=== PATIENT | male | born 1980 | race Hispanic/Latino ===

== ENCOUNTER 2022-09-30 21:55 | Emergency (ER) | payer BC, SELFPAY ==
--- OUTSIDE RECORDS SUMMARY | 2022-09-30 21:57 | XMS REPORT | Continuity of Care Document ---
:1980 Author Organization [facility] Address [address] [place] [address] Care Team Providers Name Role Phone DEREK LEZAMA Attending Clinician Unavailable Only, Ang Db Test Attending Clinician Unavailable Yusuf SCHOOL LABORATORY TECHNICIANDerek Attending Clinician Doctor Unassigned, [place] Attending Clinician Unavailable Rosa Jesus RN Attending Clinician Unavailable NORBERTO MUNSON Attending Clinician Unavailable Payers Payer Name Policy Type Policy Number Effective Date Expiration Date [id number] 2017 00:00:00 OUT OF STATE Problems Condition Condition Condition Status Onset Resolution Last Treating Co mments Source Name Details Category Date Date Treatment Clinician Date Moderate Moderate Disease Active 2014-10 Unive rs persistent persistent 1-23 it y of asthma asthma 00:00: [address] Oral ulcer Oral ulcer Disease Active 2014-10 U nivers 1-18 ity of 00:00: [address] Allergies, Adverse Reactions, Alerts Allergy Allergy Status Severity Reaction(s) Onset Inactive Treating Comm ents Source Name Type Date Date Clinician IODINE DRUG Active Hives 2016-10 Univers INGREDI 2-12 ity of 00:00: [place] 00 [facility] Iodine Propensi Active Hives 2016-10 Univers ty to 2-12 ity of adverse 00:00: [place] reaction 00 Medical [facility] Social History Social Habit Start Date Stop Date Quantity Comments Source Exposure to Yes [facility] SARS-CoV-2 (event) Medica l Branch Alcohol intake 2017-10-11 2017-10-11 .71 /d [facility] 00:00:00 00:00:00 Medical Branch Tobacco use and 2016-01-14 2016-01-14 Never used [facility] exposure 00:00:00 00:00:00 Medical Branch Sex [birth year] [facility] 00:00:00 00:00:00 Medical Branch Smoking Status Start Date Stop Date Source Never smoker [facility] Medical Branch Medications Ordered Filled Start Stop Current Ordering Indication Dosage Frequency Signature Comments Components Source Medication Medication Date Date Medication? Clinician (SIG) Name Name famotidine 2016-10 Yes 20mg Take 1 Unive rs 20 mg 2-12 tablet by ity of tablet 00:00: mouth 2 [place] 00 (two) Medical times Branch daily. ondansetron 2016-10 Yes 4mg Take 1 Univ ers 4 mg 2-12 tablet by ity of disintegrat 00:00: mouth [place] ing tablet 00 every 4 Medica l (four) Branch hours as needed for Nausea and Vomiting (N/V). sucralfate 2016-10 Yes 1g Take 1 Unive rs 1 gram 2-12 tablet by ity of tablet 00:00: mouth [place] 00 before Medical meals and Branch at bedtime. traMADOL 50 2016-10 Yes 50mg Take 1 Univ ers mg tablet 2-12 tablet by ity o f 00:00: mouth [place] 00 every 6 Medical (six) Branch hours as needed for Pain (scale 4-6). famotidine 2016-10 Yes 20mg Take 1 Unive rs 20 mg 2-12 tablet by ity of tablet 00:00: mouth 2 [place] 00 (two) Medical times Branch daily. ondansetron 2016-10 Yes 4mg Take 1 Univ ers 4 mg 2-12 tablet by ity of disintegrat 00:00: mouth [place] ing tablet 00 every 4 Medica l (four) Branch hours as needed for Nausea and Vomiting (N/V). sucralfate 2016-10 Yes 1g Take 1 Unive rs 1 gram 2-12 tablet by ity of tablet 00:00: mouth [place] 00 before Medical meals and Branch at bedtime. traMADOL 50 2016-10 Yes 50mg Take 1 Univ ers mg tablet 2-12 tablet by ity o f 00:00: mouth [place] 00 every 6 Medical (six) Branch hours as needed for Pain (scale 4-6). famotidine 2016-10 Yes 20mg Take 1 Unive rs 20 mg 2-12 tablet by ity of tablet 00:00: mouth 2 [place] 00 (two) Medical times Branch daily. ondansetron 2016-10 Yes 4mg Take 1 Univ ers 4 mg 2-12 tablet by ity of disintegrat 00:00: mouth [place] ing tablet 00 every 4 Medica l (four) Branch hours as needed for Nausea and Vomiting (N/V). sucralfate 2016- Yes 1g Take 1 Unive rs 1 gram 2-12 tablet by ity of tablet 00:00: mouth [place] 00 before Medical meals and Branch at bedtime. traMADOL 50 2016-10 Yes 50mg Take 1 Univ ers mg tablet 2-12 tablet by ity o f 00:00: mouth [place] 00 every 6 Medical (six) Branch hours as needed for Pain (scale 4-6). famotidine 2016-10 Yes 20mg Take 1 Unive rs 20 mg 2-12 tablet by ity of tablet 00:00: mouth 2 [place] 00 (two) Medical times Branch daily. ondansetron 2016-10 Yes 4mg Take 1 Univ ers 4 mg 2-12 tablet by ity of disintegrat 00:00: mouth [place] ing tablet 00 every 4 Medica l (four) Branch hours as needed for Nausea and Vomiting (N/V). sucralfate 2016-10 Yes 1g Take 1 Unive rs 1 gram 2-12 tablet by ity of tablet 00:00: mouth [place] 00 before Medical meals and Branch at bedtime. traMADOL 50 2016-10 Yes 50mg Take 1 Univ ers mg tablet 2-12 tablet by ity o f 00:00: mouth [place] 00 every 6 Medical (six) Branch hours as needed for Pain (scale 4-6). famotidine 2016-10 Yes 20mg Take 1 Unive rs 20 mg 2-12 tablet by ity of tablet 00:00: mouth 2 [place] 00 (two) Medical times Branch daily. ondansetron 2016-10 Yes 4mg Take 1 Univ ers 4 mg 2-12 tablet by ity of disintegrat 00:00: mouth [place] ing tablet 00 every 4 Medica l (four) Branch hours as needed for Nausea and Vomiting (N/V). sucralfate 2016- Yes 1g Take 1 Unive rs 1 gram 2-12 tablet by ity of tablet 00:00: mouth [place] 00 before Medical meals and Branch at bedtime. traMADOL 50 2016-10 Yes 50mg Take 1 Univ ers mg tablet 2-12 tablet by ity o f 00:00: mouth [place] 00 every 6 Medical (six) Branch hours as needed for Pain (scale 4-6). levalbutero 2014-10 Yes [id number] 1{puff} Inhale 1-2 Univers l (XOPENEX 0-19 Puffs ity of HFA) 45 00:00: every 4 [place] mcg/actuati 00 (four) Medica l on inhaler hours as Branc h needed for Wheezing. levalbutero 2014-10 Yes [id number] 1{puff} Inhale 1-2 Univers l (XOPENEX 0-19 Puffs ity of HFA) 45 00:00: every 4 [place] mcg/actuati 00 (four) Medica l on inhaler hours as Branc h needed for Wheezing. levalbutero 2014-10 Yes [id number] 1{puff} Inhale 1-2 Univers l (XOPENEX 0-19 Puffs ity of HFA) 45 00:00: every 4 [place] mcg/actuati 00 (four) Medica l on inhaler hours as Branc h needed for Wheezing. levalbutero 2014-10 Yes [id number] 1{puff} Inhale 1-2 Univers l (XOPENEX 0-19 Puffs ity of HFA) 45 00:00: every 4 [place] mcg/actuati 00 (four) Medica l on inhaler hours as Branc h needed for Wheezing. levalbutero 2014-10 Yes [id number] 1{puff} Inhale 1-2 Univers l (XOPENEX 0-19 Puffs ity of HFA) 45 00:00: every 4 [place] mcg/actuati 00 (four) Medica l on inhaler hours as Branc h needed for Wheezing. Procedures Procedure Date / Time Performed Performing Clinician Sourc e ASSIGNMENT OF BENEFITS 2021-06-15 15:43:36 Doctor Unassigned, No [facility] Branch Encounters Start End Encounter Admission Attending Care Care Encounter Source Date/Time Date/Time Type Type Clinicians Facility Department ID 2021-11-05 2021-11-05 Outpatient Divina LEZAMA MOLARRY [facility] [id number] Univers 10:00:00 10:24:36 DEREK ity of [facility] 2021-11-05 2021-11-05 Laboratory Only, Ang Db Test [facility] 1.2.8 40.114 [id number] Univers 10:00:00 10:15:00 Only Yusuf, Derek [facility] [id number] ity of [facility] 4.2.7.2.686 Aron as MARLEY?BLEA [phone] [address] MEDICAL OFFICE BUILDING 2021-11-05 2021-11-05 Letter Doctor FARIAS [id number] Univers 00:00:00 00:00:00 (Out) Unassigned, RAMIRO [id number] ity of [place] [facility] [id number] Aron as [phone] [facility] [address] [place] 2021-06-16 2021-06-16 Letter DINORA [id number] Univers 00:00:00 00:00:00 (Out) Rosa Wyatt RAMIRO [id number] it y of HOSPITAL 4.2.7.2.686 Aron as [phone] [facility] [address] [place] 2021-06-15 2021-06-15 Outpatient R [facility], [facility] [id number] Univers 10:50:00 10:50:00 NORBERTO ity of [facility] 2021-06-15 2021-06-15 Letter Doctor DINORA [id number] Univers 00:00:00 00:00:00 (Out) Unassigned, RAMIRO [id number] ity of [place] [facility] [id number] Aron as [phone] [facility] [address] [place] 2021-06-15 2021-06-15 Orders Doctor FARIAS [id number] Univers 00:00:00 00:00:00 Only Unassigned, RAMIRO [id number] ity of [place] [facility] [id number] Aron as [phone] [facility] [address] [place] Results This patient has no known results.
[2022-09-30] MEDS ORDERED: EPINEPHRINE/PF 1 MG/ML AMP ONE (22:14)
[2022-09-30] MEDS ORDERED: METHYLPREDNISOLONE 125 MG INJ ONE (22:14)
[2022-09-30] MEDS ORDERED: FAMOTIDINE 20 MG/2 ML VIAL IV ONE (22:14)
--- NOTE | 2022-10-01 00:51 | ER ---
Nurse's Notes [facility] Name: Ildefonso Dobbs Age: 42 yrs Sex: Male : 1980 Arrival Date: 09/30/2022 Time: 21:57 Bed 12 Private MD: Diagnosis: Anaphylactic reaction due to unspecified food;Shortness of breath Presentation: 09/30 21:58 Chief complaint: Patient states: "I went out to dinner and I don't know what I ate that as6 I'm allergic to but now my face, tongue, and lips are swollen". Coronavirus screen: At this time, the client does not indicate any symptoms associated with coronavirus-19. Ebola Screen: No symptoms or risks identified at this time. Initial Sepsis Screen: Does the patient meet any 2 criteria? No. Patient's initial sepsis screen is negative. Does the patient have a suspected source of infection? No. Patient's initial sepsis screen is negative. Risk Assessment: Do you want to hurt yourself or someone else? Patient reports no desire to harm self or others. Onset of symptoms was September 30, 2022. 21:58 Method Of Arrival: Ambulatory as6 21:58 Acuity: MITCH 2 as6 22:25 Onset: The symptoms/episode began/occurred acutely. Anaphylaxis evaluation, angioedema. as6 Historical: - Allergies: 22:04 No Known Allergies; as6 - Home Meds: 22:04 None [Active]; as6 - PMHx: 22:04 Asthma; as6 - PSHx: 22:04 None; as6 - Immunization history:: Client reports receiving the 2nd dose of the Covid vaccine. - Social history:: Smoking status: Patient denies any tobacco usage or history of. Screenin:27 Abuse screen: Denies threats or abuse. Denies injuries from another. Nutritional as6 screening: No deficits noted. Tuberculosis screening: No symptoms or risk factors identified. Fall Risk None identified. Assessment: 22:25 General: Appears in no apparent distress. Behavior is cooperative, anxious. General: as6 swollen tongue, lips. Pain: Denies pain. Neuro: Level of Consciousness is awake, alert, obeys commands. Cardiovascular: Capillary refill < 3 seconds. Respiratory: Airway is patent Respiratory effort is even, unlabored, Breath sounds are clear. EENT: Throat has enlarged tonsils. EENT: Derm: Rash noted that is macular, red, raised. 12 01:13 Reassessment: Patient states symptoms have improved. as6 Vital Signs: 12 21:58 BP 156 / 88; Pulse 119; Resp 18 S; Temp 97.8(O); Pulse Ox 97% on R/A; Weight 88.45 kg as6 (R); Height 5 ft. 7 in. (170.18 cm) (R); Pain 0/10; 23:49 BP 121 / 98; Pulse 95; Resp 25 S; Pulse Ox 97% on R/A; as6 21:58 Body Mass Index 30.54 (88.45 kg, 170.18 cm) as6 ED Course: 21:57 Patient arrived in ED. bp1 22:01 Davi Davalos DO is Attending Physician. ms3 22:04 Triage completed. as6 22:04 Arm band placed on. as6 22:05 Luis Antonio Herrera, ULYSSES is Primary Nurse. as6 22:15 Inserted saline lock: 20 gauge in left antecubital area, using aseptic technique. as6 22:27 Placed in gown. Bed in low position. Call light in reach. Side rails up X2. Client as6 placed on continuous cardiac and pulse oximetry monitoring. NIBP monitoring applied. Warm blanket given. 10/01 00:49 Gui Álvarez MD is Referral Physician. ms3 01:13 No provider procedures requiring assistance completed. IV discontinued, intact, as6 bleeding controlled, No redness/swelling at site. Pressure dressing applied. Administered Medications: 09/30 22:20 Drug: EPINEPHrine 1mg/mL 1:1,000 0.3 mg Route: IM; Site: right vastus lateralis; as6 10/01 01:12 Follow up: Response: No adverse reaction as6 09/30 22:20 Drug: SOLU-Medrol (methylPrednisoLONE) 125 mg Route: IVP; Site: left antecubital; as6 10/01 01:13 Follow up: Response: No adverse reaction as6 09/30 22:20 Drug: Pepcid (famotidine) 20 mg Route: IVP; Site: left antecubital; as6 10/01 01:13 Follow up: Response: No adverse reaction as6 Medication: 09/30 23:50 VIS not applicable for this client. as6 Outcome: 10/01 00:50 Discharge ordered by . ms3 01:13 Discharged to home ambulatory. as6 01:13 Condition: stable 01:13 Discharge instructions given to patient, Instructed on discharge instructions, follow up and referral plans. medication usage, Demonstrated understanding of instructions, follow-up care, medications, Prescriptions given X 2. 01:13 Patient left the ED. as6 Signatures: Davi Davalos, DO URBAN ms3 Cece Velasco Ashby, RN RN as6
--- NOTE | 2022-10-01 00:51 | EDPHYS ---
Physician Documentation [facility] Name: Ildefonso Dobbs Age: 42 yrs Sex: Male : 1980 Arrival Date: 09/30/2022 Time: 21:57 Bed 12 Private MD: ED Physician Davi Davalos HPI: 09/30 23:56 This 42 yrs old Male presents to ER via Ambulatory with complaints of Facial ms3 Swelling, Allergic Reaction. 23:56 Onset: The symptoms/episode began/occurred just prior to arrival. Associated signs and ms3 symptoms: Pertinent positives: rash, shortness of breath, swelling. Possible causes: The patient has no known obvious cause for the symptoms. At home the patient or guardian has treated the symptoms with Benadryl. Severity of symptoms: At their worst the symptoms were severe in the emergency department the symptoms are unchanged. Historical: - Allergies: 22:04 No Known Allergies; as6 - Home Meds: 22:04 None [Active]; as6 - PMHx: 22:04 Asthma; as6 - PSHx: 22:04 None; as6 - Immunization history:: Client reports receiving the 2nd dose of the Covid vaccine. - Social history:: Smoking status: Patient denies any tobacco usage or history of. ROS: 23:56 Constitutional: Negative for fever, and chills. Eyes: Negative for injury, pain, ms3 redness, and discharge. 23:56 Neck: Negative for injury, pain, and swelling, MS/Extremity: Negative for injury and deformity. 23:56 Respiratory: Positive for shortness of breath. 23:56 Skin: Positive for rash. 23:56 All other systems are negative. Exam: 23:56 Constitutional: This is a well developed, well nourished patient who is awake, alert, ms3 and in no acute distress. Head/Face: Normocephalic, atraumatic. Neck: Trachea midline, no cervical lymphadenopathy. Supple, full range of motion without nuchal rigidity, or vertebral point tenderness. No Meningismus. Chest/axilla: Normal chest wall appearance and motion. Nontender with no deformity. Cardiovascular: Regular rate and rhythm with a normal S1 and S2. No gallops, murmurs, or rubs. Normal PMI, no JVD. No pulse deficits. Respiratory: Lungs have equal breath sounds bilaterally, clear to auscultation and percussion. No rales, rhonchi or wheezes noted. No increased work of breathing, no retractions or nasal flaring. Abdomen/GI: Soft, non-tender, with normal bowel sounds. No distension or tympany. No guarding or rebound. No evidence of tenderness throughout. 23:56 ENT: Posterior pharynx: swelling, that is moderate. 23:56 Skin: urticaria, and is diffusely located. Vital Signs: 21:58 BP 156 / 88; Pulse 119; Resp 18 S; Temp 97.8(O); Pulse Ox 97% on R/A; Weight 88.45 kg as6 (R); Height 5 ft. 7 in. (170.18 cm) (R); Pain 0/10; 23:49 BP 121 / 98; Pulse 95; Resp 25 S; Pulse Ox 97% on R/A; as6 21:58 Body Mass Index 30.54 (88.45 kg, 170.18 cm) as6 MDM: 22:04 Patient medically screened. ms3 23:56 Differential diagnosis: anaphylaxis, angioedema. ms3 10/01 01:09 Data reviewed: vital signs, nurses notes, and as a result, I will discharge patient. ms3 Counseling: I had a detailed discussion with the patient and/or guardian regarding: the historical points, exam findings, and any diagnostic results supporting the discharge/admit diagnosis, the need for outpatient follow up, to return to the emergency department if symptoms worsen or persist or if there are any questions or concerns that arise at home. Administered Medications: 09/30 22:20 Drug: EPINEPHrine 1mg/mL 1:1,000 0.3 mg Route: IM; Site: right vastus lateralis; as6 10/01 01:12 Follow up: Response: No adverse reaction as6 09/30 22:20 Drug: SOLU-Medrol (methylPrednisoLONE) 125 mg Route: IVP; Site: left antecubital; as6 10/01 01:13 Follow up: Response: No adverse reaction as6 09/30 22:20 Drug: Pepcid (famotidine) 20 mg Route: IVP; Site: left antecubital; as6 10/01 01:13 Follow up: Response: No adverse reaction as6 Disposition Summary: 10/01/22 00:50 Discharge Ordered Location: Home ms3 Condition: Stable ms3 Diagnosis - Anaphylactic reaction due to unspecified food ms3 - Shortness of breath ms3 Followup: ms3 - With: Gui Álvarez MD - When: 2 - 3 days - Reason: Recheck today's complaints Discharge Instructions: - Discharge Summary Sheet ms3 - Shortness of Breath, Adult ms3 - Anaphylactic Reaction, Adult, [id number] ms3 Forms: - Medication Reconciliation Form ms3 - Thank You Letter ms3 - Antibiotic Education ms3 - Prescription Opioid Use ms3 Prescriptions: - EpiPen 2-Josafat - inject 0.3 milligram by INTRAMUSCULAR route one time; May repeat in 15 min if ms3 no improvement; 1 box; Refills: 0, Product Selection Permitted - Prednisone 20 mg Oral Tablet - take 3 tablets by ORAL route once daily for 5 days; 15 tablet; Refills: 0, ms3 Product Selection Permitted Signatures: Davi Davalos DO DO ms3 Luis Antonio Herrera RN RN as6
[2022-10-01 01:17] VITALS: TEMP 97.8; O2SAT 97
[2022-10-01 01:19] VITALS: BP 121/98
== END 2022-10-01 01:13 | disposition home or self-care (01) ==
LOC: ER 21:55
DX: R06.02 Shortness of breath (principal); T78.00XA Anaphylactic reaction due to unspecified food, initial encounter
CPT/HCPCS: 96372; 96374; 96375; 99283; J0171; J2930